=== PATIENT | male | born 1975 | race Caucasian/White ===

== ENCOUNTER 2016-11-01 16:16 | Emergency (ER) | payer OTHER ==
--- NOTE | 2016-11-01 17:22 | DIAGNOSTIC IMAGING REPORT ---
PROCEDURE: XR CERVICAL SPINE 2 OR 3 VIEW INDICATION: NECK TRAUMA/INJURY TECHNIQUE: Three views. COMPARISON: None. FINDINGS: Normal alignment without fracture. Mild to moderate degenerative changes most prominent at C4-5. Straightening of the cervical spine. Cervical ribs. Odontoid, lateral masses C1 and prevertebral soft tissues are normal. IMPRESSION: 1. No acute changes 2. Straightening of the cervical spine which may indicate muscular spasm 3. Mild to moderate degenerative changes .
--- NOTE | 2016-11-01 18:03 | ED ORDER SUMMARY ---
..... Patient: JONATHAN BENNETT OrderSheet [facility] VisitID: [id number] [address] [place] [address] 41y, M Registration Date/Time: 11/01/2016 ORDER SHEET Weight: 36.2 kg (stated) Allergies: PCN GENERAL ORDERS: Cervical Spine 2 or 3V Urgent (16:58 11/01/2016 Reyna A.R.N.P.) (Ack 17:04 LTapper) (17:11 LTapper) MEDICATION ORDERS: IV FLUIDS: ORDER SHEET NOTES: [Electronically signed by Nanci Membreno R.N. (18:23 11/01/2016)] [Electronically signed by Viola VásquezR.N.P. (18:53 11/01/2016)] [Electronically locked/signed by Nanci Membreno R.N. (18:23 11/01/2016)]
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
--- NOTE | 2016-11-01 18:03 | ED ORDER SUMMARY ---
..... Patient: JONATHAN BENNETT OrderSheet [facility] VisitID: [id number] [address] [place] [address] 41y, M Registration Date/Time: 11/01/2016 ORDER SHEET Weight: 36.2 kg (stated) Allergies: PCN GENERAL ORDERS: Cervical Spine 2 or 3V Urgent (16:58 11/01/2016 Reyna A.R.N.P.) (Ack 17:04 LTapper) (17:11 LTapper) MEDICATION ORDERS: IV FLUIDS: ORDER SHEET NOTES: [Electronically signed by Nanci Membreno R.N. (18:23 11/01/2016)] [Electronically signed by Viola VásquezR.N.P. (18:53 11/01/2016)] [Electronically locked/signed by Nanci Membreno R.N. (18:23 11/01/2016)]
--- NOTE | 2016-11-01 18:53 | ED MED RECONCILIATION SUMMARY ---
Patient: JONATHAN BENNETT Medication Reconciliation Report [facility] VisitID: [id number] [address] [place] [address] 41y, M Registration Date/Time: 11/01/2016 Weight: 36.2 kg Height/Length: 71 in. BMI: 11.1 ALLERGIES: PCN The patient's Home Medications are listed below: THE FOLLOWING MEDICATIONS NEED TO BE RECONCILED: Breo Ellipta Inhalation The source(s) of the original Home Medication information: patient The following Medications were given to the patient in the Emergency Department: None. The following Medications were prescribed to the patient: Naproxen 500 mg tablets: take 1 orally every 12 hours as needed for pain. Dispense twenty (20). No refills. -- Viola Vásquez A.R.N.P. Flexeril 10 mg: Take 1 orally every 8 hours as needed for muscle spasm. Dispense twenty (20). No refills. Substitution is permissible. -- Viola Vásquez A.R.N.P.
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
--- NOTE | 2016-11-01 18:53 | ED MED RECONCILIATION SUMMARY ---
Patient: JONATHAN BENNETT Medication Reconciliation Report [facility] VisitID: [id number] [address] [place] [address] 41y, M Registration Date/Time: 11/01/2016 Weight: 36.2 kg Height/Length: 71 in. BMI: 11.1 ALLERGIES: PCN The patient's Home Medications are listed below: THE FOLLOWING MEDICATIONS NEED TO BE RECONCILED: Breo Ellipta Inhalation The source(s) of the original Home Medication information: patient The following Medications were given to the patient in the Emergency Department: None. The following Medications were prescribed to the patient: Naproxen 500 mg tablets: take 1 orally every 12 hours as needed for pain. Dispense twenty (20). No refills. -- Viola Vásquez A.R.N.P. Flexeril 10 mg: Take 1 orally every 8 hours as needed for muscle spasm. Dispense twenty (20). No refills. Substitution is permissible. -- Viola Vásquez A.R.N.P.
--- NOTE | 2016-11-01 18:53 | ED MAR SUMMARY ---
..... Medication Administration Record [facility] [address] [place], [place] [id number] Patient: JONATHAN BENNETT Amberly Visit ID: [id number] 41y, M Weight: 36.2 kg Height/Length: 71 in BMI: 11.1 ALLERGIES: PCN
--- NOTE | 2016-11-01 18:53 | ED MAR SUMMARY ---
..... Medication Administration Record [facility] [address] [place] [id number] Patient: JONATHAN BENNETT Amberly Visit ID: [id number] 41y, M Weight: 36.2 kg Height/Length: 71 in BMI: 11.1 ALLERGIES: PCN
== END 2016-11-01 18:12 | disposition home or self-care (01) ==
LOC: ED SRH 16:16
DX: S16.1XXA Strain of muscle, fascia and tendon at neck level, initial encounter (principal); V53.5XXA Driver of pick-up truck or van injured in collision with car, pick-up truck or van in traffic accident, initial encounter; Y93.I9 Activity, other involving external motion; Y92.410 Unspecified street and highway as the place of occurrence of the external cause; Y99.9 Unspecified external cause status; J44.9 Chronic obstructive pulmonary disease, unspecified; F17.210 Nicotine dependence, cigarettes, uncomplicated; Z88.0 Allergy status to penicillin